=== PATIENT | male | born 1995 ===

== ENCOUNTER → 2017-05-11 | Outpatient (CLI) | payer OTHER ==
--- NOTE | 2017-05-11 10:44 | DIAGNOSTIC IMAGING REPORT ---
LEFT FOOT 3 VIEWS CLINICAL HISTORY: Left foot injury. FINDINGS: 3 views of the left foot are obtained. No prior studies are available for comparison at the time of dictation. The skeletal structures are well mineralized. There is a minimally distracted and angulated fracture through the distal shaft of the fifth proximal phalanx with overlying soft tissue edema. No additional fracture is seen. The joint spaces of the foot are well-maintained. A small spur is noted along the dorsal aspect of the talus. IMPRESSION: There is a minimally distracted oblique fracture through the distal shaft of the fifth proximal phalanx. Electronically signed by: Alex Camargo M.D. 05/11/2017 10:43 AM Dictated Date/Time: 05/11/2017 10:42 AM
== END | disposition home or self-care (01) ==
LOC: C.RDSM 14:54
PROVIDERS: ATTEND Internal Medicine
DX: S99.922A Unspecified injury of left foot, initial encounter (principal); X58.XXXA Exposure to other specified factors, initial encounter

== ENCOUNTER → 2017-05-28 | Outpatient (CLI) | payer OTHER ==
--- NOTE | 2017-05-28 07:53 | DIAGNOSTIC IMAGING REPORT ---
L FOOT MIN 3 VIEWS CLINICAL HISTORY: FRACTURE OF LEFT FOOT COMPARISON: 05/11/2017 DISCUSSION: There is been no change in the alignment of the mildly comminuted fracture involving the proximal phalanx of the fifth toe. The fracture margins appear slightly indistinct suggesting internal callus formation. IMPRESSION: No change in the alignment of the fracture involving the proximal phalanx of the fifth toe Electronically signed by: Esteban Morin M.D. 05/28/2017 7:52 AM Dictated Date/Time: 05/28/2017 7:51 AM
== END | disposition home or self-care (01) ==
LOC: C.RDSM 12:38
PROVIDERS: ATTEND Internal Medicine
DX: S92.902A Unspecified fracture of left foot, initial encounter for closed fracture (principal); X58.XXXA Exposure to other specified factors, initial encounter

== ENCOUNTER → 2017-06-28 | Outpatient (CLI) | payer OTHER ==
--- NOTE | 2017-06-28 08:04 | DIAGNOSTIC IMAGING REPORT ---
L TOE(S) MIN 2 VIEWS CLINICAL HISTORY: LEFT 5TH TOE FX COMPARISON: Left foot radiographs May 11, 2017 and May 28, 2017. FINDINGS: Note is made of interval callus formation associated with the transverse fracture of the midshaft of the proximal phalanx of the left fifth toe when compared to exam of May 28, 2017. Fracture alignment is unchanged. Fracture appears nondisplaced. No additional fractures are identified. IMPRESSION: Partial interval healing with callus formation of the nondisplaced fracture of the proximal phalanx of the left fifth toe. Electronically signed by: Erasto Mccray M.D. 06/28/2017 8:03 AM Dictated Date/Time: 06/28/2017 8:01 AM
== END | disposition home or self-care (01) ==
LOC: C.RDSM 15:27
PROVIDERS: ATTEND Internal Medicine
DX: S92.515D Nondisplaced fracture of proximal phalanx of left lesser toe(s), subsequent encounter for fracture with routine healing (principal); X58.XXXD Exposure to other specified factors, subsequent encounter